=== PATIENT | male | born 1990 | race Caucasian/White ===

== ENCOUNTER 2018-02-03 11:33 | Emergency (ER) | payer SELFPAY ==
[2018-02-03 12:19] LABS: Absolute Lymphocytes (CBC) 2.1 K/uL (0.7-4.9); Absolute Monocytes 0.6 K/uL (0.1-1.3); Absolute Neutrophil 3.3 K/uL (1.8-8.0); Basophils % 1.1 % (0-1.3); Eosinophils % 1.8 % (0-4.4); Hematocrit 48.4 % (39.6-49.0); Lymphocytes % 33.8 % (15.3-44.8); MCH 30.5 pg (27.0-35.0); MCV 90.8 fL (80-100); MPV 7.3 fL (7.6-11.3); Monocytes % 9.4 % (3.3-12.3); RBC Red Blood Cell Count 5.33 M/uL (4.33-5.43)
[2018-02-03 12:40] LABS: BUN Blood Urea Nitrogen 15 mg/dL (7-18); Bicarbonate 27 mmol/L (21-32); Glucose Level 90 mg/dL (74-106); Potassium 3.4 mmol/L (3.5-5.1); Sodium Level 141 mmol/L (136-145); Troponin (Emerg Dept Use Only) < 0.02 ng/mL (0.0-0.045)
[2018-02-03] MEDS ORDERED: POTASSIUM CL SA 10 MEQ TAB PO ONE (13:18)
--- NOTE | 2018-02-03 13:36 | RAD REPORT ---
EXAM DESCRIPTION: RAD - Chest Pa And Lat (2 Views) - 02/03/2018 1:21 pm CLINICAL HISTORY: CHEST PAIN Chest pain. COMPARISON: No comparisons FINDINGS: Ill-defined opacity in the left retrocardiac region is present, suspicious for pneumonia/ infiltrate. The lungs are otherwise clear. The heart is normal in size. No displaced fractures.
--- NOTE | 2018-02-03 14:30 | EDPHYS ---
Physician Documentation [facility] Name: Stevie Hall Age: 27 yrs Sex: Male : 1990 Arrival Date: 02/03/2018 Time: 11:36 Bed 26 Private MD: ED Physician Lexa Trejo HPI: 02/03 12:02 This 27 yrs old Male presents to ER via EMS with complaints of Chest Pain, rn Shortness Of Breath, Dizziness. 12:02 The patient or guardian reports chest pain that is located primarily in the substernal rn area. The pain does not radiate. Associated signs and symptoms: Pertinent positives: palpitations, Pertinent negatives: abdominal pain, syncope, vomiting. The chest pain is described as a heaviness. Duration: The patient or guardian reports a single episode, that is still ongoing. Modifying factors: The symptoms are alleviated by nothing. the symptoms are aggravated by nothing. The patient has not experienced similar symptoms in the past. Reports driving, + sudden onset of chest pain, left sided, non-radiating, pressure, assoc with tingling in both upper ext as well as sob. Just restarted phentermine and had approx 20 oz of coffee prior to this episode. No other drug use. No fever/cough. . Historical: - Allergies: 11:42 NKA; iw - Home Meds: 11:44 phentermine oral oral [Active]; testosterone injection [Active]; estrogen inhibitor iw [Active]; B12 injection [Active]; - PMHx: 11:44 None; iw - PSHx: 11:44 feet; iw - Immunization history:: Adult Immunizations up to date. - Social history:: Smoking status: Patient/guardian denies using tobacco. - Ebola Screening: : Patient negative for fever greater than or equal to 101.5 degrees Fahrenheit, and additional compatible Ebola Virus Disease symptoms Patient denies exposure to infectious person Patient denies travel to an Ebola-affected area in the 21 days before illness onset No symptoms or risks identified at this time. - Family history:: not pertinent. - Hospitalizations: : No recent hospitalization is reported. ROS: 12:02 Constitutional: Negative for fever, chills, and weight loss, Eyes: Negative for injury, rn pain, redness, and discharge, Neck: Negative for injury, pain, and swelling, Cardiovascular: Negative for edema, Respiratory: Negative for shortness of breath, cough, wheezing, and pleuritic chest pain, Abdomen/GI: Negative for abdominal pain, nausea, vomiting, diarrhea, and constipation, MS/Extremity: Negative for injury and deformity, Skin: Negative for injury, rash, and discoloration, Neuro: Negative for headache, weakness, and seizure. Exam: 12:02 Constitutional: This is a well developed, well nourished patient who is awake, alert, rn appears anxious Head/Face: Normocephalic, atraumatic. Eyes: Pupils equal round and reactive to light, extra-ocular motions intact. Lids and lashes normal. Conjunctiva and sclera are non-icteric and not injected. Cornea within normal limits. Periorbital areas with no swelling, redness, or edema. ENT: dry MM, no stridor Neck: Trachea midline, no thyromegaly or masses palpated, and no cervical lymphadenopathy. Supple, full range of motion without nuchal rigidity, or vertebral point tenderness. No Meningismus. Cardiovascular: tachycardic, regular, no murmur Respiratory: Mild tachypnea, no retractions, speaking full sentences Abdomen/GI: soft, non-tender Skin: Warm, dry with normal turgor. Normal color with no rashes, no lesions, and no evidence of cellulitis. MS/ Extremity: Pulses equal, no cyanosis. Neurovascular intact. Full, normal range of motion. Equal circumference. Neuro: Awake and alert, GCS 15, oriented to person, place, time, and situation. Cranial nerves II-XII grossly intact. Motor strength 5/5 in all extremities. Sensory grossly intact. Cerebellar exam normal. Vital Signs: 11:37 BP 129 / 71; Pulse 106; Resp 18 S; Temp 98.7(O); Pulse Ox 97% on R/A; Weight 101.15 kg; iw Height 6 ft. 0 in. (182.88 cm); Pain 6/10; 11:53 BP 134 / 86; Pulse 97; Resp 22; Pulse Ox 97% on R/A; aj 12:49 BP 121 / 83; Pulse 96; Resp 21; Pulse Ox 97% on R/A; aj 14:08 BP 123 / 69; Pulse 93; Resp 15; Pulse Ox 100% on R/A; aj 15:19 BP 122 / 78; Pulse 85; Resp 18; Pulse Ox 100% on R/A; Pain 0/10; mg2 11:37 Body Mass Index 30.24 (101.15 kg, 182.88 cm) iw MDM: 11:38 Patient medically screened. rn 14:27 Differential diagnosis: acute myocardial infarction, acute pericarditis, anxiety, chest rn wall pain, costochondritis, esophagitis, gastritis, gastroesophageal reflux disease (GERD), peptic ulcer disease, pericarditis, pleurisy, pneumothorax, pulmonary embolus. Data reviewed: vital signs, nurses notes, lab test result(s), EKG, radiologic studies, plain films, and as a result, I will discharge patient. Counseling: I had a detailed discussion with the patient and/or guardian regarding: the historical points, exam findings, and any diagnostic results supporting the discharge/admit diagnosis, lab results, radiology results, the need for outpatient follow up, to return to the emergency department if symptoms worsen or persist or if there are any questions or concerns that arise at home. Response to treatment: the patient's symptoms have markedly improved after treatment, and as a result, I will discharge patient. Special discussion: Based on the patient's history, exam, and Dx evaluation, there is no indication for emergent intervention or inpatient Tx. It is understood by the patient/guardian that if the Sx's persist or worsen they need to return immediately for re-evaluation. I discussed with the patient/guardian in detail that at this point there is no indication for admission to the hospital. It is understood, however, that if the symptoms persist or worsen the patient needs to return immediately for re-evaluation. ED course: Advised stopping phentermine to see if that is culprit, only finding here was retrocardiac opacity, went back to talk to patient, reports mild cough, will treat with zithromax and stop phentermine, and pcp f/u. . 02/03 11:56 Order name: CBC with Diff; Complete Time: 12:56 rn 02/03 11:56 Order name: Basic Metabolic Panel; Complete Time: 12:56 rn 02/03 11:56 Order name: Troponin (emerg Dept Use Only); Complete Time: 12:56 rn 02/03 11:56 Order name: D-Dimer; Complete Time: 12:56 rn 02/03 11:56 Order name: XRAY Chest Pa And Lat (2 Views); Complete Time: 13:54 rn 02/03 11:56 Order name: IV Start; Complete Time: 12:11 rn 02/03 11:56 Order name: EKG; Complete Time: 11:56 rn 02/03 11:56 Order name: EKG - Nurse/Tech; Complete Time: 12:11 rn Administered Medications: 13:26 Drug: Potassium Chloride 40 mEq Route: PO; awilda 15:05 Follow up: Response: No adverse reaction mg2 Disposition: 02/03/18 14:29 Discharged to Home. Impression: Chest pain, unspecified, Palpitations, Pneumonia. - Condition is Stable. - Discharge Instructions: Nonspecific Chest Pain, Pain Without a Known Cause, Palpitations, Community-Acquired Pneumonia, Adult. - Prescriptions for Ibuprofen 800 mg Oral Tablet - take 1 tablet by ORAL route every 12 hours As needed take with food; 20 tablet. Zithromax Z- Gennaro 250 mg Oral Tablet - take 1 tablet by ORAL route as directed for 5 days Day 1 - take two (2) tablets one time. Day 2, 3, 4 , 5 take one (1) tablet once daily.; 6 tablet. - Medication Reconciliation Form, Thank You Letter, Antibiotic Education, Prescription Opioid Use, Work release form form. - Follow up: Private Physician; When: As needed; Reason: Recheck today's complaints, Re-evaluation by your physician. - Problem is new. - Symptoms have improved. Signatures: Dispatcher [employer] EDMS Garima Guillen RN RN aj Williams, Irene, RN RN iw Nieto, Roman, MD MD rn Gardose, Michele, RN RN mg2 Corrections: (The following items were deleted from the chart) 15:20 14:29 02/03/2018 14:29 Discharged to Home. Impression: Chest pain, unspecified; mg2 Palpitations; Pneumonia. Condition is Stable. Forms are Medication Reconciliation Form, Thank You Letter, Antibiotic Education, Prescription Opioid Use. Follow up: Private Physician; When: As needed; Reason: Recheck today's complaints, Re-evaluation by your physician. Problem is new. Symptoms have improved. rn
--- NOTE | 2018-02-03 14:30 | ER ---
Nurse's Notes [facility] Name: Stevie Hall Age: 27 yrs Sex: Male : 1990 Arrival Date: 02/03/2018 Time: 11:36 Bed 26 Private MD: Diagnosis: Chest pain, unspecified;Palpitations;Pneumonia Presentation: 02/03 11:39 Presenting complaint: Patient states: was riding in an air conditioned truck and had iw left sided chest pain that feels like someone was standing on his chest, also c/o SOB, dizziness, recently started taking phentermine for weight loss. Transition of care: patient was not received from another setting of care. Onset of symptoms was February 03, 2018. Risk Assessment: Do you want to hurt yourself or someone else? Patient reports no desire to harm self or others. Initial Sepsis Screen: Does the patient meet any 2 criteria? No. Patient's initial sepsis screen is negative. Does the patient have a suspected source of infection? No. Patient's initial sepsis screen is negative. Care prior to arrival: Medication(s) given: ASA, 81 mg, x 4, Nitroglycerin, 0.4 mg SL x 1, IV initiated. 18 GA, in the left antecubital area. 11:39 Method Of Arrival: EMS: [facility] iw 11:39 Acuity: SABINA 3 iw Historical: - Allergies: 11:42 NKA; iw - Home Meds: 11:44 phentermine oral oral [Active]; testosterone injection [Active]; estrogen inhibitor iw [Active]; B12 injection [Active]; - PMHx: 11:44 None; iw - PSHx: 11:44 feet; iw - Immunization history:: Adult Immunizations up to date. - Social history:: Smoking status: Patient/guardian denies using tobacco. - Ebola Screening: : Patient negative for fever greater than or equal to 101.5 degrees Fahrenheit, and additional compatible Ebola Virus Disease symptoms Patient denies exposure to infectious person Patient denies travel to an Ebola-affected area in the 21 days before illness onset No symptoms or risks identified at this time. - Family history:: not pertinent. - Hospitalizations: : No recent hospitalization is reported. Screenin:45 Abuse screen: Denies threats or abuse. Denies injuries from another. Nutritional iw screening: No deficits noted. Tuberculosis screening: No symptoms or risk factors identified. Fall Risk IV access (20 points). Assessment: 11:53 General: Appears in no apparent distress. comfortable, Behavior is calm, cooperative, aj appropriate for age. Pain: Complains of pain in chest. Neuro: Level of Consciousness is awake, alert, obeys commands, Oriented to person, place, time, situation, Appropriate for age. Cardiovascular: Reports chest pain, palpitations, shortness of breath, Capillary refill < 3 seconds in bilateral fingers Patient's skin is warm and dry. Respiratory: Airway is patent Respiratory effort is even, unlabored, Respiratory pattern is regular, symmetrical. Respiratory: Reports shortness of breath. Derm: Skin is intact, is healthy with good turgor, Skin is pink, warm \T\ dry. normal. 14:08 Reassessment: Patient appears in no apparent distress at this time. No changes from aj previously documented assessment. Patient and/or family updated on plan of care and expected duration. Pain level reassessed. Patient is alert, oriented x 3, equal unlabored respirations, skin warm/dry/pink. Patient's is at bedside. Vital Signs: 11:37 BP 129 / 71; Pulse 106; Resp 18 S; Temp 98.7(O); Pulse Ox 97% on R/A; Weight 101.15 kg; iw Height 6 ft. 0 in. (182.88 cm); Pain 6/10; 11:53 BP 134 / 86; Pulse 97; Resp 22; Pulse Ox 97% on R/A; aj 12:49 BP 121 / 83; Pulse 96; Resp 21; Pulse Ox 97% on R/A; aj 14:08 BP 123 / 69; Pulse 93; Resp 15; Pulse Ox 100% on R/A; aj 15:19 BP 122 / 78; Pulse 85; Resp 18; Pulse Ox 100% on R/A; Pain 0/10; mg2 11:37 Body Mass Index 30.24 (101.15 kg, 182.88 cm) ED Course: 11:36 Patient arrived in ED. aa5 11:38 Garima Guillen, RN is Primary Nurse. aj 11:38 Lexa Trejo MD is Attending Physician. rn 11:42 Triage completed. iw 11:44 Arm band placed on. iw 11:44 Maintain EMS IV. Dressing intact. Good blood return noted. Site clean \T\ dry. Gauge \T\ iw site: 18 LAC. 11:45 EKG done, by elevator service technician. reviewed by Lexa Trejo MD. sm3 11:53 Patient has correct armband on for positive identification. aj 13:20 XRAY Chest Pa And Lat (2 Views) In Process Unspecified. EDMS 14:08 No provider procedures requiring assistance completed. aj 14:35 REPEAT EKG DONE. sm3 15:19 IV discontinued, intact, bleeding controlled, No redness/swelling at site. Pressure mg2 dressing applied. Administered Medications: 13:26 Drug: Potassium Chloride 40 mEq Route: PO; aj 15:05 Follow up: Response: No adverse reaction mg2 Outcome: 14:29 Discharge ordered by MD. rn 15:19 Discharged to home ambulatory, with family. mg2 15:19 Condition: stable 15:19 Discharge instructions given to patient, family, Instructed on discharge instructions, follow up and referral plans. medication usage, Demonstrated understanding of instructions, follow-up care, medications, Prescriptions given X 2. 15:20 Patient left the ED. mg2 Signatures: Dispatcher [employer] EDMS Garima Guillen RN Shayy Serna RN RN iw Lexa Trejo MD MD rn Calderon, Audri RN RN aa5 Earl Humphries RN RN mg2 Xiomy Mclean sm3 Corrections: (The following items were deleted from the chart) 11:39 11:37 BP 129 / 71; Pulse 106bpm; Resp 18bpm; Spontaneous; Pulse Ox 97% RA; Temp 98.7F iw Oral; aa5
--- NOTE | 2018-02-03 15:19 | EKG ---
Test Date: 2018-02-03 Test Time: 12:44:06 Reel Fed Printer: JAIDA MEASUREMENT RESULTS: Intervals: Rate: 101 UT: 132 QRSD: 82 QT: 336 QTc: 435 [place]: P: 48 UT: 132 QRS: 61 T: 19 INTERPRETIVE STATEMENTS: Sinus tachycardia Otherwise normal ECG No previous ECG available for comparison Electronically Signed On 02-03-18 15:19:05 MILK SAMPLER by Terry Mena
--- NOTE | 2018-02-04 06:30 | EKG ---
Test Date: 2018-02-03 Test Time: 15:31:13 Nurse Extern: JAIDA-Kaye MEASUREMENT RESULTS: Intervals: Rate: 85 SD: 138 QRSD: 86 QT: 354 QTc: 421 [place]: P: 37 SD: 138 QRS: 62 T: 32 INTERPRETIVE STATEMENTS: Normal sinus rhythm Normal ECG Compared to ECG 02/03/2018 12:44:06 Sinus tachycardia no longer present Electronically Signed On 02-04-18 06:29:24 FAMILY CONSULTANT by Terry Mena
== END 2018-02-03 15:20 | disposition home or self-care (01) ==
LOC: ER 11:33
DX: J18.8 Other pneumonia, unspecified organism (principal); R07.9 Chest pain, unspecified; R00.2 Palpitations; R00.0 Tachycardia, unspecified
CPT/HCPCS: 36415; 71046; 80048; 84484; 85025; 85379; 93005; 99284